=== PATIENT | male | born 1985 | race Caucasian/White ===

== ENCOUNTER 2016-08-14 23:49 | Observation (INO) ==
[2016-08-14] MEDS ORDERED: 0.9 % Sodium Chloride 1,000 ML IVC ONE (23:52)
--- NOTE | 2016-08-14 23:58 | Emergency Department Note ---
Disposition Clinical Impression: Altered mental status Disposition: Admitted As Inpatient Condition: Fair General Adult HPI - General Chief complaint: ED Overdose Time Seen by Provider: 08/14/16 23:52 - Related Data Allergies Allergy/AdvReac Type Severity Reaction Status Date / Time Unable to Assess Allergy Unverified 08/14/16 23:58 Course Vital Signs Temperature 98 F 08/14/16 23:52 Pulse Rate 67 08/14/16 23:52 Respiratory Rate 12 08/14/16 23:52 Blood Pressure 112/63 08/14/16 23:52 O2 Sat by Pulse Oximetry 98 08/14/16 23:52 Temperature 97.7 F 08/15/16 04:50 Pulse Rate 49 08/15/16 04:50 Respiratory Rate 16 08/15/16 04:57 Blood Pressure 126/98 08/15/16 04:57 O2 Sat by Pulse Oximetry 96 08/15/16 04:50 Oxygen Delivery Oxygen Delivery Room Air Medical Decision Making - Lab Data Result diagrams: 08/15/16 00:20 08/15/16 00:20 Lab Results 08/15/16 08/15/16 08/15/16 Range/Units 00:20 00:20 00:29 WBC 4.8 (4.3-11.1) K/mcL RBC 4.87 (4.19-5.50) M/mcL Hgb 12.8 L (12.9-16.9) g/dL Hct 39.8 (37.5-50.1) % MCV 81.7 L (83.0-100.0) fL MCH 26.3 L (28.0-33.3) pg MCHC 32.2 (31.6-35.5) g/dL RDW 14.6 H (11.5-14.5) % Plt Count 215 (140-400) K/mcL MPV 11.0 (9.4-12.4) fL Immature Gran % 0.2 (0-4) % Seg Neutrophils % 44.2 % Lymphocytes % 43.1 % Monocytes % 7.3 % Eosinophils % 4.6 % Basophils % 0.6 % Neutrophils # 2.1 (1.6-8.9) K/mcL Lymphocytes # 2.1 (0.6-4.6) K/mcL Monocytes # 0.4 (0.0-1.3) K/mcL Eosinophils # 0.2 (0.0-0.6) K/mcL Basophils # 0.0 (0.0-0.2) K/mcL Immature Plt Fraction 9.0 H (1.1-6.1) % ABG pH (7.32-7.45) pH Units ABG pCO2 (35-45) mmHg ABG pO2 (85-104) mmHg ABG HCO3 (21-27) mEQ/L ABG Total CO2 (20-26) mEq/L ABG O2 Saturation (95-98) % ABG Base Excess (-2.0 to 3.0) mEq/L Blood Gas Modality Inspired O2 % Sodium 140 (136-145) mEq/L Potassium 3.5 (3.5-4.5) mEq/L Chloride 105 (98-109) mEq/L Carbon Dioxide 26 (19-29) mEq/L BUN 11 (8-26) mg/dL Creatinine 0.97 (0.72-1.25) mg/dL Est GFR ( Amer) > 60 (> 60) Est GFR (Non-Af Amer) > 60 (> 60) BUN/Creatinine Ratio 11 (6-26) Glucose 97 (70-99) mg/dL Calculated Osmolality 289 (280-300) Calcium 9.3 (8.6-10.8) mg/dL Total Bilirubin 0.5 (0.2-1.2) mg/dL Direct Bilirubin 0.2 (0.0-0.5) mg/dL Indirect Bilirubin 0.3 (0.0-1.2) mg/dL AST 19 (5-34) Units/L ALT 15 (0-55) Units/L Alkaline Phosphatase 83 (38-126) Units/L Serum Total Protein 6.9 (6.0-8.3) g/dL Albumin 3.7 (3.5-5.0) g/dL Globulin 3.2 (2.4-3.5) g/dL Albumin/Globulin Ratio 1.2 (1.1-2.2) Urine Color Dark Yellow (Yellow) Urine Clarity Cloudy A (Clear) Urine pH 5.5 (5.0-8.0) pH Units Ur Specific [place] > 1.030 H (1.010-1.025) Urine Protein Trace (Neg-Trace) mg/dL Urine Glucose (UA) Normal (Normal) mg/dL Urine Ketones Trace H (Negative) mg/dL Urine Blood Negative (Negative) Urine Nitrite Negative (Negative) Urine Bilirubin Small H (Negative) Urine Urobilinogen Normal (Normal) mg/dL Ur Leukocyte Esterase Moderate H (Negative) Urine Microscopic RBC 3-5 H (0-3) per hpf Urine Microscopic WBC 50-100 H (0-3) per hpf Ur Squamous Epith Cells Few (None-Few) per lpf Urine Bacteria Moderate H (None-Few) per hpf Hyaline Casts None Seen (None-Few) per lpf Salicylates < 5.0 L (15-30) mg/dL Urine Opiates Screen (Mwawfl=914) ng/mL Acetaminophen < 1.0 L (10-30) mcg/mL Ur Barbiturates Screen (Uhnfuq=399) ng/mL Ur Phencyclidine Scrn (Cutoff=25) ng/mL Ur Amphetamines Screen (Ggjjqw=5238) ng/mL U Benzodiazepines Scrn (Xzgwtb=829) ng/mL Urine Cocaine Screen (Cutoff= 300) ng/mL U Marijuana (THC) Screen (Cutoff = 50) ng/mL Ethyl Alcohol < 10 (0-10) mg/dL 08/15/16 08/15/16 Range/Units 00:29 01:28 WBC (4.3-11.1) K/mcL RBC (4.19-5.50) M/mcL Hgb (12.9-16.9) g/dL Hct (37.5-50.1) % MCV (83.0-100.0) fL MCH (28.0-33.3) pg MCHC (31.6-35.5) g/dL RDW (11.5-14.5) % Plt Count (140-400) K/mcL MPV (9.4-12.4) fL Immature Gran % (0-4) % Seg Neutrophils % % Lymphocytes % % Monocytes % % Eosinophils % % Basophils % % Neutrophils # (1.6-8.9) K/mcL Lymphocytes # (0.6-4.6) K/mcL Monocytes # (0.0-1.3) K/mcL Eosinophils # (0.0-0.6) K/mcL Basophils # (0.0-0.2) K/mcL Immature Plt Fraction (1.1-6.1) % ABG pH 7.40 (7.32-7.45) pH Units ABG pCO2 52 H (35-45) mmHg ABG pO2 82 L (85-104) mmHg ABG HCO3 32.2 H (21-27) mEQ/L ABG Total CO2 33.8 H (20-26) mEq/L ABG O2 Saturation 96 (95-98) % ABG Base Excess 6.1 H (-2.0 to 3.0) mEq/L Blood Gas Modality RA Inspired O2 21 % Sodium (136-145) mEq/L Potassium (3.5-4.5) mEq/L Chloride (98-109) mEq/L Carbon Dioxide (19-29) mEq/L BUN (8-26) mg/dL Creatinine (0.72-1.25) mg/dL Est GFR ( Amer) (> 60) Est GFR (Non-Af Amer) (> 60) BUN/Creatinine Ratio (6-26) Glucose (70-99) mg/dL Calculated Osmolality (280-300) Calcium (8.6-10.8) mg/dL Total Bilirubin (0.2-1.2) mg/dL Direct Bilirubin (0.0-0.5) mg/dL Indirect Bilirubin (0.0-1.2) mg/dL AST (5-34) Units/L ALT (0-55) Units/L Alkaline Phosphatase (38-126) Units/L Serum Total Protein (6.0-8.3) g/dL Albumin (3.5-5.0) g/dL Globulin (2.4-3.5) g/dL Albumin/Globulin Ratio (1.1-2.2) Urine Color (Yellow) Urine Clarity (Clear) Urine pH (5.0-8.0) pH Units Ur Specific [place] (1.010-1.025) Urine Protein (Neg-Trace) mg/dL Urine Glucose (UA) (Normal) mg/dL Urine Ketones (Negative) mg/dL Urine Blood (Negative) Urine Nitrite (Negative) Urine Bilirubin (Negative) Urine Urobilinogen (Normal) mg/dL Ur Leukocyte Esterase (Negative) Urine Microscopic RBC (0-3) per hpf Urine Microscopic WBC (0-3) per hpf Ur Squamous Epith Cells (None-Few) per lpf Urine Bacteria (None-Few) per hpf Hyaline Casts (None-Few) per lpf Salicylates (15-30) mg/dL Urine Opiates Screen Negative (Sqykgf=205) ng/mL Acetaminophen (10-30) mcg/mL Ur Barbiturates Screen Negative (Vbvlzu=539) ng/mL Ur Phencyclidine Scrn Negative (Cutoff=25) ng/mL Ur Amphetamines Screen Positive H (Kobujc=5222) ng/mL U Benzodiazepines Scrn Positive H (Cvspfk=326) ng/mL Urine Cocaine Screen Negative (Cutoff= 300) ng/mL U Marijuana (THC) Screen Positive H (Cutoff = 50) ng/mL Ethyl Alcohol (0-10) mg/dL Critical Care Time Critical Care Time: Yes Total Critical Care Time: 30 Attestation: Patient presented after a suspected opiate overdose requiring multiple doses of Narcan Attestation Statement - Attestation Attestation: I examined this patient and my medical decision-making was reviewed with the [employer]/PA/Advanced Practice Nurse/Resident Physician. I agree with the documented findings, disposition and treatment plan as described except to the extent set forth below. Gtcc-uv-hzmg time provided Patient presents obtunded after a suspected opiate overdose. He was found at [place] in his car with drug paraphernalia present. Pupils pinpoint. Minimal response from several doses of IV Narcan. Nasal trumpet placed by the resident physician under my supervision. Patient protecting his airway. 01:35: A family member called in and indicated that the patient "does not use drugs and is postictal from a seizure." At this point the patient is still listed as a Perry Culver. We are awaiting the patient's family to arrive to obtain more information.
--- NOTE | 2016-08-14 23:58 | Emergency Department Note ---
Overdose - Lab Data Result diagrams: 08/15/16 00:20 08/15/16 00:20 Lab Results 08/15/16 08/15/16 08/15/16 Range/Units 00:20 00:20 00:29 WBC 4.8 (4.3-11.1) K/mcL RBC 4.87 (4.19-5.50) M/mcL Hgb 12.8 L (12.9-16.9) g/dL Hct 39.8 (37.5-50.1) % MCV 81.7 L (83.0-100.0) fL MCH 26.3 L (28.0-33.3) pg MCHC 32.2 (31.6-35.5) g/dL RDW 14.6 H (11.5-14.5) % Plt Count 215 (140-400) K/mcL MPV 11.0 (9.4-12.4) fL Immature Gran % 0.2 (0-4) % Seg Neutrophils % 44.2 % Lymphocytes % 43.1 % Monocytes % 7.3 % Eosinophils % 4.6 % Basophils % 0.6 % Neutrophils # 2.1 (1.6-8.9) K/mcL Lymphocytes # 2.1 (0.6-4.6) K/mcL Monocytes # 0.4 (0.0-1.3) K/mcL Eosinophils # 0.2 (0.0-0.6) K/mcL Basophils # 0.0 (0.0-0.2) K/mcL Immature Plt Fraction 9.0 H (1.1-6.1) % ABG pH (7.32-7.45) pH Units ABG pCO2 (35-45) mmHg ABG pO2 (85-104) mmHg ABG HCO3 (21-27) mEQ/L ABG Total CO2 (20-26) mEq/L ABG O2 Saturation (95-98) % ABG Base Excess (-2.0 to 3.0) mEq/L Blood Gas Modality Inspired O2 % Sodium 140 (136-145) mEq/L Potassium 3.5 (3.5-4.5) mEq/L Chloride 105 (98-109) mEq/L Carbon Dioxide 26 (19-29) mEq/L BUN 11 (8-26) mg/dL Creatinine 0.97 (0.72-1.25) mg/dL Est GFR ( Amer) > 60 (> 60) Est GFR (Non-Af Amer) > 60 (> 60) BUN/Creatinine Ratio 11 (6-26) Glucose 97 (70-99) mg/dL Calculated Osmolality 289 (280-300) Calcium 9.3 (8.6-10.8) mg/dL Total Bilirubin 0.5 (0.2-1.2) mg/dL Direct Bilirubin 0.2 (0.0-0.5) mg/dL Indirect Bilirubin 0.3 (0.0-1.2) mg/dL AST 19 (5-34) Units/L ALT 15 (0-55) Units/L Alkaline Phosphatase 83 (38-126) Units/L Serum Total Protein 6.9 (6.0-8.3) g/dL Albumin 3.7 (3.5-5.0) g/dL Globulin 3.2 (2.4-3.5) g/dL Albumin/Globulin Ratio 1.2 (1.1-2.2) Urine Color Dark Yellow (Yellow) Urine Clarity Cloudy A (Clear) Urine pH 5.5 (5.0-8.0) pH Units Ur Specific [place] > 1.030 H (1.010-1.025) Urine Protein Trace (Neg-Trace) mg/dL Urine Glucose (UA) Normal (Normal) mg/dL Urine Ketones Trace H (Negative) mg/dL Urine Blood Negative (Negative) Urine Nitrite Negative (Negative) Urine Bilirubin Small H (Negative) Urine Urobilinogen Normal (Normal) mg/dL Ur Leukocyte Esterase Moderate H (Negative) Urine Microscopic RBC 3-5 H (0-3) per hpf Urine Microscopic WBC 50-100 H (0-3) per hpf Ur Squamous Epith Cells Few (None-Few) per lpf Urine Bacteria Moderate H (None-Few) per hpf Hyaline Casts None Seen (None-Few) per lpf Salicylates < 5.0 L (15-30) mg/dL Urine Opiates Screen (Ywbsni=218) ng/mL Acetaminophen < 1.0 L (10-30) mcg/mL Ur Barbiturates Screen (Prufdf=570) ng/mL Ur Phencyclidine Scrn (Cutoff=25) ng/mL Ur Amphetamines Screen (Nxeslz=7568) ng/mL U Benzodiazepines Scrn (Rhspcu=178) ng/mL Urine Cocaine Screen (Cutoff= 300) ng/mL U Marijuana (THC) Screen (Cutoff = 50) ng/mL Ethyl Alcohol < 10 (0-10) mg/dL 08/15/16 08/15/16 Range/Units 00:29 01:28 WBC (4.3-11.1) K/mcL RBC (4.19-5.50) M/mcL Hgb (12.9-16.9) g/dL Hct (37.5-50.1) % MCV (83.0-100.0) fL MCH (28.0-33.3) pg MCHC (31.6-35.5) g/dL RDW (11.5-14.5) % Plt Count (140-400) K/mcL MPV (9.4-12.4) fL Immature Gran % (0-4) % Seg Neutrophils % % Lymphocytes % % Monocytes % % Eosinophils % % Basophils % % Neutrophils # (1.6-8.9) K/mcL Lymphocytes # (0.6-4.6) K/mcL Monocytes # (0.0-1.3) K/mcL Eosinophils # (0.0-0.6) K/mcL Basophils # (0.0-0.2) K/mcL Immature Plt Fraction (1.1-6.1) % ABG pH 7.40 (7.32-7.45) pH Units ABG pCO2 52 H (35-45) mmHg ABG pO2 82 L (85-104) mmHg ABG HCO3 32.2 H (21-27) mEQ/L ABG Total CO2 33.8 H (20-26) mEq/L ABG O2 Saturation 96 (95-98) % ABG Base Excess 6.1 H (-2.0 to 3.0) mEq/L Blood Gas Modality RA Inspired O2 21 % Sodium (136-145) mEq/L Potassium (3.5-4.5) mEq/L Chloride (98-109) mEq/L Carbon Dioxide (19-29) mEq/L BUN (8-26) mg/dL Creatinine (0.72-1.25) mg/dL Est GFR ( Amer) (> 60) Est GFR (Non-Af Amer) (> 60) BUN/Creatinine Ratio (6-26) Glucose (70-99) mg/dL Calculated Osmolality (280-300) Calcium (8.6-10.8) mg/dL Total Bilirubin (0.2-1.2) mg/dL Direct Bilirubin (0.0-0.5) mg/dL Indirect Bilirubin (0.0-1.2) mg/dL AST (5-34) Units/L ALT (0-55) Units/L Alkaline Phosphatase (38-126) Units/L Serum Total Protein (6.0-8.3) g/dL Albumin (3.5-5.0) g/dL Globulin (2.4-3.5) g/dL Albumin/Globulin Ratio (1.1-2.2) Urine Color (Yellow) Urine Clarity (Clear) Urine pH (5.0-8.0) pH Units Ur Specific [place] (1.010-1.025) Urine Protein (Neg-Trace) mg/dL Urine Glucose (UA) (Normal) mg/dL Urine Ketones (Negative) mg/dL Urine Blood (Negative) Urine Nitrite (Negative) Urine Bilirubin (Negative) Urine Urobilinogen (Normal) mg/dL Ur Leukocyte Esterase (Negative) Urine Microscopic RBC (0-3) per hpf Urine Microscopic WBC (0-3) per hpf Ur Squamous Epith Cells (None-Few) per lpf Urine Bacteria (None-Few) per hpf Hyaline Casts (None-Few) per lpf Salicylates (15-30) mg/dL Urine Opiates Screen Negative (Clqyyi=053) ng/mL Acetaminophen (10-30) mcg/mL Ur Barbiturates Screen Negative (Bxukwf=987) ng/mL Ur Phencyclidine Scrn Negative (Cutoff=25) ng/mL Ur Amphetamines Screen Positive H (Quqgxr=9180) ng/mL U Benzodiazepines Scrn Positive H (Doikoc=284) ng/mL Urine Cocaine Screen Negative (Cutoff= 300) ng/mL U Marijuana (THC) Screen Positive H (Cutoff = 50) ng/mL Ethyl Alcohol (0-10) mg/dL - EKG Data EKG results narrative: EKG shows a sinus rhythm with a rate of 62 bpm. Intervals including the QT interval within normal limits. No ST changes. No acute ischemic changes. QRS is 113 ms. Overdose HPI - General Chief Complaint: ED Overdose Time Seen by Provider: 08/14/16 23:52 Nursing Notes Reviewed: Yes Vital Signs Reviewed: Yes - History of Present Illness HPI Narrative: Unidentified male presents to the emergency department after being found unresponsive at [facility]. He was found in his car, unresponsive and EMS was called. EMS state he was in his car and was not responding to verbal stimuli but some to pain. EMS denies any signs of injury. They gave him a total 4 mg of IV Narcan with some mild improvement. In the emergency department he is breathing on his own, withdraws to pain in 4 extremities but making no sounds. He is not able to provide any information. - Related Data Allergies Allergy/AdvReac Type Severity Reaction Status Date / Time Unable to Assess Allergy Unverified 08/14/16 23:58 Limitations: ROS unobtainable due to patients medical condition Physical Exam General: Mid 20s appearing male, sleeping in bed, no spontaneous verbal. Breathing on his own without any respiratory distress Cardiovascular: Regular rate and rhythm. S1, S2. No murmurs, rubs or gallops. He is not tachycardic Respiratory: Breath sounds clear bilaterally. No wheezing, rales or rhonchi. No resp distress Abdomen: Abdomen is soft without any guarding, rebound or rigidity, there is no bruising or signs of trauma. No pain elicited on exam it is very soft without distention Eyes: Pupils are 2-3 mm, small but symmetrically reactive bilaterally. No deviation or strabismus. HENT: No signs of head trauma, no bleeding, no signs of facial injury Neuro: Withdraws to pain in all extremities. No posturing. Opens eyes to pain briefly. Breathing on his own with no difficulties. Gag reflex intact. Protecting airway. Musculoskeletal: No joint tenderness or swelling. No signs of bruising or trauma Skin: Signs of IV drug use in the antecubital fossa. No other bruising or signs of injury Course Course Narrative: Unidentified male late 20s or early 30s found unresponsive in a car. Minimal response to Narcan however pupils are pinpoint. No signs of trauma or injury. No family present or identification. Initial vital signs are stable. GCS around 7-[address] scan of the head shows no acute injury. Chest x-ray clear. Labs including CBC, BMP, [place] panel essentially unremarkable. EKG unremarkable. Urine drug screen positive for marijuana, benzodiazepines and amphetamines. His urinalysis did come back positive for leukocyte esterase with 50-100 white blood cells. It is unlikely a young man like him has a urinary tract infection but once more awake this can be discussed with him. I did send for a gonorrhea/Chlamydia test as this can cause pyuria and is probably more likely. He is not febrile, tachycardic with no leukocytosis and I do not suspect infection. Family did call and state he has a history of seizures and takes medications. We do not know these medications. They are apparently coming to the emergency department but we have not seen them yet to get any further history and no phone number was left. No seizure-like activity. After 3 hours in the emergency department his mental status is improving and now speaking and opening eyes more easily. We discussed with the on-call hospitalist, Dr. Zavala who accepts for admission. Patient will be monitored in the ICU until more stable Vital Signs Temperature 98 F 08/14/16 23:52 Pulse Rate 67 08/14/16 23:52 Respiratory Rate 12 08/14/16 23:52 Blood Pressure 112/63 08/14/16 23:52 O2 Sat by Pulse Oximetry 98 08/14/16 23:52 Temperature 98 F 08/14/16 23:52 Pulse Rate 51 08/15/16 00:51 Respiratory Rate 16 08/15/16 00:51 Blood Pressure 112/68 08/15/16 00:51 O2 Sat by Pulse Oximetry 98 08/15/16 00:51 Oxygen Delivery Oxygen Delivery Room Air Disposition Clinical Impression: Altered mental status Qualifiers: Altered mental status type: unspecified Qualified Code(s): R41.82 - Altered mental status, unspecified Disposition: Admitted As Inpatient Condition: Fair
[2016-08-15 00:27] LABS: Basophils % 0.6 %; Eosinophils # 0.2 K/mcL (0.0-0.6); Eosinophils % 4.6 %; Hematocrit 39.8 % (37.5-50.1); Hemoglobin 12.8 g/dL (12.9-16.9); Immature Granulocytes % 0.2 % (0-4); Lymphocytes # 2.1 K/mcL (0.6-4.6); Lymphocytes % 43.1 %; Mean Corpuscular HGB Conc 32.2 g/dL (31.6-35.5); Mean Corpuscular Hemoglobin 26.3 pg (28.0-33.3); Mean Corpuscular Volume 81.7 fL (83.0-100.0); Monocytes # 0.4 K/mcL (0.0-1.3); Monocytes % 7.3 %; Neutrophils # 2.1 K/mcL (1.6-8.9); Platelet Count 215 K/mcL (140-400); Red Blood Count 4.87 M/mcL (4.19-5.50); Red Cell Distribution Width 14.6 % (11.5-14.5); Segmented Neutrophils % 44.2 %
[2016-08-15 00:36] LABS: Bilirubin,Urine Small (Negative); Blood,Urine Negative (Negative); Clarity,Urine Cloudy (Clear); Color,Urine Dark Yellow (Yellow); Glucose,Urine (UA) Normal (Normal); Ketones,Urine Trace mg/dL (Negative); Leukocyte Esterase,Urine Moderate (Negative); Nitrite,Urine Negative (Negative); PH,Urine 5.5 pH Units (5.0-8.0); Protein,Urine Trace mg/dL (Neg-Trace); Specific Gravity,Urine > 1.030 (1.010-1.025); Urobilinogen,Urine Normal (Normal)
[2016-08-15 00:38] LABS: Hyaline Casts,Urine None Seen per lpf (None-Few); WBC,Urine 50-100 per hpf (0-3)
[2016-08-15 00:41] LABS: Amphetamine Screen,Urine Positive ng/mL (Cutoff=1000); Barbiturate Screen,Urine Negative ng/mL (Cutoff=200); Benzodiazepines Screen,Urine Positive ng/mL (Cutoff=200); Cannabinoid Screen,Urine Positive ng/mL (Cutoff = 50); Cocaine Screen,Urine Negative ng/mL (Cutoff= 300); Opiate Screen,Urine Negative ng/mL (Cutoff=300); Phencyclidine Screen,Urine Negative ng/mL (Cutoff=25)
[2016-08-15 00:42] LABS: Alanine Aminotransferase 15 Units/L (0-55); Albumin 3.7 g/dL (3.5-5.0); Albumin/Globulin Ratio 1.2 (1.1-2.2); Alkaline Phosphatase 83 Units/L (38-126); Aspartate Amino Transferase 19 Units/L (5-34); BUN/Creatinine Ratio 11 (6-26); Bilirubin,Direct 0.2 mg/dL (0.0-0.5); Bilirubin,Indirect 0.3 mg/dL (0.0-1.2); Bilirubin,Total 0.5 mg/dL (0.2-1.2); Blood Urea Nitrogen 11 mg/dL (8-26); Calcium 9.3 mg/dL (8.6-10.8); Carbon Dioxide 26 mEq/L (19-29); Chloride 105 mEq/L (98-109); Globulin 3.2 g/dL (2.4-3.5); Glucose 97 mg/dL (70-99); Osmolality,Calculated 289 (280-300); Potassium 3.5 mEq/L (3.5-4.5); Sodium 140 mEq/L (136-145); Total Protein 6.9 g/dL (6.0-8.3); eGFR For African Americans > 60 (> 60); eGFR For Non-African Americans > 60 (> 60)
[2016-08-15 00:43] LABS: Acetaminophen < 1.0 mcg/mL (10-30); Ethanol < 10 mg/dL (0-10); Salicylate < 5.0 mg/dL (15-30)
[2016-08-15 00:48] LABS: Bacteria,Urine Moderate per hpf (None-Few); Squamous Epithelial Cell,Urine Few per lpf (None-Few)
[2016-08-15 01:38] LABS: ABG Base Excess 6.1 mEq/L (-2.0 to 3.0); ABG HCO3 32.2 mEQ/L (21-27); ABG Oxygen Saturation 96 % (95-98); ABG PCO2 52 mmHg (35-45); ABG PO2 82 mmHg (85-104); ABG TCO2 33.8 mEq/L (20-26); Blood Gas FiO2 21 %
[2016-08-15] MEDS ORDERED: 0.9 % Sodium Chloride 1,000 ML IVC ONE (03:20)
--- NOTE | 2016-08-15 03:35 | Internal Med History&Physical ---
Date of Encounter: 08/16/16 Time of Encounter: 03:31 Assessment and Plan (1) Altered mental status Status: Acute suspected overdose. Urine is positive for benzodiazepines amphetamines.and marijuana. opiates is negative in urine. Patient had received a total of 8 mg of Narcan without improvement. Patient is unable to provide any history. Patient Jose coma scale is 9/15 for eye-opening to painful stimuli, sounds localization. CT scan of the head is unremarkable. Family mentioned concerns about seizures and mentioned that he is on seizure medicine. Awaiting verification of seizure medicines by family to be resumed. with regards to his [place] has a cough and a gag reflex. Arterial blood gas was performed showing a pH of 7.4, PCO2 of 52and saturation 96% on room air. Qualifiers: Altered mental status type: unspecified Qualified Code(s): R41.82 - Altered mental status, unspecified Internal Medicine - H&P: HPI Chief complaint: AMS History of present illness: Mr. Culver is a 30 year old male WAS SENT TO THE EMERGENCY ROOM TODAY AFTER FOUND IN A PARKING LOT UNRESPONSIVE. hE HAD RECEIVED MULTIPLE DOSES OF nARCAN WITHOUT IMPROVEMENT. hE IS UNABLE TO PROVIDE ANY HISTORY. uRINE IS POSITIVE FOR BENZODIAZEPINES/AMPHETAMINES AND MARIJUANA. fAMILY MENTIONED THAT PATIENT HAS A HISTORY OF SEIZURES AND THEY THINK THAT THIS IS MORE OF A SEIZURE. patient is still unresponsive during our interview in the emergency room. He localizes to painful stimuli. Eye-opening to painful stimuli. Sounds. He is having a cough and a gag reflex Past Med Surg Social Fam HX - Past Medical History Medical history: no medical history Psychiatric history: no psych history - Social History Smoking Status: Unknown if ever smoked Drug use: unknown Internal Medicine - H&P: Meds Clobetasol Propionate 0.05% [Temovate] 1 appl TP BID PRN 08/15/16 [History] Dextran 70/Hypromellose [Artificial Tears Eye Drops] 1 drop OP Q4H PRN 08/15/16 [History] Divalproex (24 HR) [Depakote ER (24 HR)] 500 mg PO HS 08/15/16 [History] Fexofenadine HCl [Allergy Relief] 180 mg PO DAILY 08/15/16 [History] Gabapentin [Neurontin] 800 mg PO TID 08/15/16 [History] Naproxen [Naprosyn] 500 mg PO BID PRN 08/15/16 [History] clonazePAM [Klonopin] 1 mg PO BID PRN 08/15/16 [History] Allergies Unable to Assess Allergy (Unverified 08/14/16 23:58) patient unresponsive All Systems PM: A 10-system review of systems was performed and is negative for pertinent findings except as documented above in the HPI. Review of systems: Review system unobtainable given patient mental status. - Constitutional Vitals: Temp Pulse Resp BP Pulse Ox 98 F 55 14 116/91 94 08/14/16 23:52 08/15/16 02:51 08/15/16 02:51 08/15/16 02:51 08/15/16 02:51 Exam: Gen.: patient is stuporous. GCS 8/15 cardiac: normal S1 S2 no additional sounds or murmurs chest: no active wheezing or bronchial breathing abdomen soft nontender nondistended normal bowel sounds lower extremity no swelling. Neuro: couldnt be perofmred given his mental status Internal Med - H&P Results - Labs CBC & Chem 7: 08/15/16 03:55 08/15/16 03:55 - Impressions ITS Impressions Head CT 08/15/16 23:54 IMPRESSION: No acute intracranial abnormality. D/ / Carito Abernathy MD / Carito Abernathy MD Interpreting Provider: Carito Abernathy MD
[2016-08-15] MEDS: D5% in 0.9% NACL 1,000 ML IVC SCH ×2 (03:48→15:38)
[2016-08-15 06:11] LABS: Basophils % 0.8 %; Eosinophils # 0.2 K/mcL (0.0-0.6); Hematocrit 39.4 % (37.5-50.1); Hemoglobin 12.6 g/dL (12.9-16.9); Immature Granulocytes % 0.3 % (0-4); Lymphocytes # 1.8 K/mcL (0.6-4.6); Lymphocytes % 45.9 %; Mean Corpuscular Hemoglobin 26.8 pg (28.0-33.3); Mean Corpuscular Volume 83.7 fL (83.0-100.0); Mean Platelet Volume 11.4 fL (9.4-12.4); Monocytes # 0.4 K/mcL (0.0-1.3); Neutrophils # 1.5 K/mcL (1.6-8.9); Platelet Count 177 K/mcL (140-400); Red Blood Count 4.71 M/mcL (4.19-5.50); Red Cell Distribution Width 14.8 % (11.5-14.5)
[2016-08-15 06:21] LABS: Alanine Aminotransferase 23 Units/L (0-55); Albumin 3.3 g/dL (3.5-5.0); Albumin/Globulin Ratio 1.2 (1.1-2.2); Alkaline Phosphatase 77 Units/L (38-126); Aspartate Amino Transferase 49 Units/L (5-34); BUN/Creatinine Ratio 10 (6-26); Bilirubin,Total 0.6 mg/dL (0.2-1.2); Blood Urea Nitrogen 11 mg/dL (8-26); Calcium 8.7 mg/dL (8.6-10.8); Carbon Dioxide 29 mEq/L (19-29); Chloride 107 mEq/L (98-109); Globulin 2.8 g/dL (2.4-3.5); Glucose 113 mg/dL (70-99); Magnesium 1.8 mg/dL (1.6-2.6); Osmolality,Calculated 294 (280-300); Potassium 3.5 mEq/L (3.5-4.5); Sodium 142 mEq/L (136-145); Total Protein 6.1 g/dL (6.0-8.3); eGFR For African Americans > 60 (> 60); eGFR For Non-African Americans > 60 (> 60)
[2016-08-15] MEDS ORDERED: Pantoprazole 40 MG VIAL IVP SCH (09:00)
--- NOTE | 2016-08-15 09:54 | Pulmonology Consult Note ---
<Ayala Penn - Last Filed: 08/15/16 16:07> Date of Encounter: 08/15/16 Time of Encounter: 09:49 Assessment and Plan (1) Overdose Current Visit: Yes Status: Acute Since admission the patient has had no seizure-like activity, EEG negative for seizure activity. The patient has been stable. He is sleeping but wakes easily to painful stimuli. He denies any pain, states that he is just "tired". He denies using any drugs and does not remember the events of last evening. He states that he does not use any drugs. The patient was noted to have a scabbed ulceration and firm nodule under the skin of his penis on the right lateral side that is mobile. When questioned about possible IV injection into this site he denies this. With leukocytosis in the patient's urine, the patient will be tested for chlamydia, gonorrhea, syphilis, hepatitis, HIV. Patient was added on ceftriaxone. Track cho were also noted on the patient's arms excoriations and scabbing on all 4 extremities. Stable for transfer to a telemetry bed from the ICU. 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 He is able to move all extremities no neurological deficits. Pupils equal round and reactive to light, patient does not recall the events of last evening. No seizure-like activity since arrival. EEG was negative for seizure activity. Pharmacy was able to obtain patient's home medications, he does take Depakote 500 mg by mouth at bedtime. We will start this this evening. Pulmonary: Patient is stable, chest x-ray negative, lung sounds clear to auscultation bilaterally Cardiovascular: Normal sinus rhythm, patient occasionally has episodes of bradycardia. We will continue to lunchroom monitor GI: Nutrition: NPO while drowsy, advance diet as tolerated and patient is more awake GI Prophylaxis protonix Renal: Creatinine within normal limits, did rise slightly to 1.08. Patient has received IV fluids. Continue to monitor. ID: The patient was found to have leukocytosis in his urine, he also has multiple excoriations similar to track cho and a couple abrasions on bilateral upper and lower extremities. The patient also has an ulcerated chancer-type lesion with a firm mobile nodule below the skin surface on the right lateral side of his penis. The patient was started on ceftriaxone in the ER, will be tested for STI's: Chlamydia, gonorrhea, hepatitis panel, syphilis, HIV. Heme/Onc: H/H stable Endocrine: Stable Lines: all lines checked and no evidence of infections Skin: skin care to prevent pressure ulcers per nursing routine care. CODE STATUS: FULL CODE Qualifiers: Encounter type: initial encounter Injury intent: accidental or unintentional Qualified Code(s): T50.901A - Poisoning by unspecified drugs, medicaments and biological substances, accidental (unintentional), initial encounter (2) Altered mental status Current Visit: Yes Status: Acute Qualifiers: Altered mental status type: unspecified Qualified Code(s): R41.82 - Altered mental status, unspecified History of Present Illness Consult date: 08/15/16 Requesting physician: Miquel Zavala Reason for consult: other (AMS) Chief complaint: OD History of present illness: Mr. Bui is a 31-year-old male presented to the emergency department overnight after being found unresponsive at [facility]. He was found in his car and EMS was called. EMS stated that he was in his car, not responding to verbal stimuli but did respond to some painful stimuli. EMS denies any signs of injury to the patient upon their arrival. He was given a total of 4 mg of IV Narcan with some mild improvement. Upon arrival to the ER the patient had no identification and no family members were present. It was noted that his pupils were pinpoint, GCS 7-[address] negative, CXR negative, CBC, CMP essentially unremarkable. UDS + THC, benzos, amphetamines. Once patient was identified and family was contacted they stated that he has a history of seizure and takes medications however they do not know which medications. Since admission the patient has had no seizure-like activity, EEG negative for seizure activity. The patient has been stable. He is sleeping but wakes easily to painful stimuli. He denies any pain, states that he is just "tired". He denies using any drugs and does not remember the events of last evening. He states that he does not use any drugs. The patient was noted to have a scabbed ulceration and firm nodule under the skin of his penis that is mobile. When questioned about possible IV injection into this site, he denies this. With leukocytosis in the patient's urine, the patient will be tested for chlamydia, gonorrhea, syphilis, hepatitis, HIV. Track cho were also noted on the patient's arms excoriations and scabbing on all 4 extremities. Past Med Surg Social Fam HX - Past Medical History Medical history: no medical history Psychiatric history: no psych history - Social History Smoking Status: Unknown if ever smoked Drug use: unknown Medications and Allergies Clobetasol Propionate 0.05% [Temovate] 1 appl TP BID PRN 08/15/16 [History] Dextran 70/Hypromellose [Artificial Tears Eye Drops] 1 drop OP Q4H PRN 08/15/16 [History] Divalproex (24 HR) [Depakote ER (24 HR)] 500 mg PO HS 08/15/16 [History] Fexofenadine HCl [Allergy Relief] 180 mg PO DAILY 08/15/16 [History] Gabapentin [Neurontin] 800 mg PO TID 08/15/16 [History] Naproxen [Naprosyn] 500 mg PO BID PRN 08/15/16 [History] clonazePAM [Klonopin] 1 mg PO BID PRN 08/15/16 [History] Allergies Unable to Assess Allergy (Unverified 08/14/16 23:58) patient unresponsive ROS unobtainable: due to mental status All Systems: A 10-system review of systems was performed and is negative for pertinent findings except as documented above in the HPI. Physical Examination Vital Signs: Vital Signs, Last 4 Hours Pulse Resp BP Pulse Ox 08/15/16 09:10 56 08/15/16 09:00 75 17 132/77 97 08/15/16 08:00 52 16 128/90 99 08/15/16 07:00 58 10 130/91 97 08/15/16 06:01 50 10 135/92 100 General appearance: no acute distress, lethargic, asleep Eyes: nonicteric ENT: oropharynx moist Neck: supple, no lymphadenopathy, no JVD Effort: normal Auscultation: bilateral: clear Cardiovascular: other (Bradycardia, sinus rhythm) Gastrointestinal: normoactive bowel sounds, soft, non-tender, non-distended Integumentary: other (multiple excoriations similar to track cho and a couple abrasions on bilateral upper and lower extremities. The patient also has an ulcerated chancer-type lesion with a firm mobile nodule below the skin surface on the right lateral side of his penis. ) Extremities: no cyanosis, no edema, no clubbing, pulses normal non-focal exam, pupils equal and round, motor strength normal and symmetric mood appropriate, affect normal Results - Laboratory Findings CBC and BMP: 08/15/16 03:55 08/15/16 03:55 ABG ABG pH 7.40 pH Units (7.32-7.45) 08/15/16 01:28 ABG pCO2 52 mmHg (35-45) H 08/15/16 01:28 ABG pO2 82 mmHg (85-104) L 08/15/16 01:28 ABG O2 Saturation 96 % (95-98) 08/15/16 01:28 Abnormal lab findings: Abnormal lab results WBC 4.0 K/mcL (4.3-11.1) L 08/15/16 03:55 Hgb 12.6 g/dL (12.9-16.9) L 08/15/16 03:55 MCH 26.8 pg (28.0-33.3) L 08/15/16 03:55 RDW 14.8 % (11.5-14.5) H 08/15/16 03:55 Neutrophils # 1.5 K/mcL (1.6-8.9) L 08/15/16 03:55 Immature Plt Fraction 9.0 % (1.1-6.1) H 08/15/16 00:20 ABG pCO2 52 mmHg (35-45) H 08/15/16 01:28 ABG pO2 82 mmHg (85-104) L 08/15/16 01:28 ABG HCO3 32.2 mEQ/L (21-27) H 08/15/16 01:28 ABG Total CO2 33.8 mEq/L (20-26) H 08/15/16 01:28 ABG Base Excess 6.1 mEq/L (-2.0 to 3.0) H 08/15/16 01:28 Glucose 113 mg/dL (70-99) H 08/15/16 03:55 POC Glucose 100 (58-89) H 08/15/16 05:37 AST 49 Units/L (5-34) H 08/15/16 03:55 Albumin 3.3 g/dL (3.5-5.0) L 08/15/16 03:55 Urine Clarity Cloudy (Clear) A 08/15/16 00:29 Ur Specific [place] > 1.030 (1.010-1.025) H 08/15/16 00:29 Urine Ketones Trace mg/dL (Negative) H 08/15/16 00:29 Urine Bilirubin Small (Negative) H 08/15/16 00:29 Ur Leukocyte Esterase Moderate (Negative) H 08/15/16 00:29 Urine Microscopic RBC 3-5 per hpf (0-3) H 08/15/16 00:29 Urine Microscopic WBC 50-100 per hpf (0-3) H 08/15/16 00:29 Urine Bacteria Moderate per hpf (None-Few) H 08/15/16 00:29 Salicylates < 5.0 mg/dL (15-30) L 08/15/16 00:20 Acetaminophen < 1.0 mcg/mL (10-30) L 08/15/16 00:20 Ur Amphetamines Screen Positive ng/mL (Ywfkns=0556) H 08/15/16 00:29 U Benzodiazepines Scrn Positive ng/mL (Tzufch=949) H 08/15/16 00:29 U Marijuana (THC) Screen Positive ng/mL (Cutoff = 50) H 08/15/16 00:29 - Clinical Findings Intake & Output: Intake & Output 08/14/16 08/15/16 08/15/16 23:59 07:59 15:59 Intake Total 100 / 1100 Balance 100 / 1100 Weight 84 kg Consult Discharge Plan - Plan Referrals: Claudio Tatum MD [Primary Care Provider] - <Saulo Beckford - Last Filed: 08/15/16 16:14> Date of Encounter: 08/15/16 All Systems: A 10-system review of systems was performed and is negative for pertinent findings except as documented above in the HPI. Physical Examination Vital Signs: Vital Signs, Last 4 Hours Pulse Resp BP Pulse Ox 08/15/16 12:00 49 17 128/91 98 08/15/16 11:00 58 18 124/86 97 08/15/16 10:00 50 16 124/91 98 08/15/16 09:10 56 08/15/16 09:00 75 17 132/77 97 Results - Laboratory Findings CBC and BMP: 08/15/16 03:55 08/15/16 03:55 ABG ABG pH 7.40 pH Units (7.32-7.45) 08/15/16 01:28 ABG pCO2 52 mmHg (35-45) H 08/15/16 01:28 ABG pO2 82 mmHg (85-104) L 08/15/16 01:28 ABG O2 Saturation 96 % (95-98) 08/15/16 01:28 Abnormal lab findings: Abnormal lab results WBC 4.0 K/mcL (4.3-11.1) L 08/15/16 03:55 Hgb 12.6 g/dL (12.9-16.9) L 08/15/16 03:55 MCH 26.8 pg (28.0-33.3) L 08/15/16 03:55 RDW 14.8 % (11.5-14.5) H 08/15/16 03:55 Neutrophils # 1.5 K/mcL (1.6-8.9) L 08/15/16 03:55 Immature Plt Fraction 9.0 % (1.1-6.1) H 08/15/16 00:20 ABG pCO2 52 mmHg (35-45) H 08/15/16 01:28 ABG pO2 82 mmHg (85-104) L 08/15/16 01:28 ABG HCO3 32.2 mEQ/L (21-27) H 08/15/16 01:28 ABG Total CO2 33.8 mEq/L (20-26) H 08/15/16 01:28 ABG Base Excess 6.1 mEq/L (-2.0 to 3.0) H 08/15/16 01:28 Glucose 113 mg/dL (70-99) H 08/15/16 03:55 POC Glucose 100 (58-89) H 08/15/16 05:37 AST 49 Units/L (5-34) H 08/15/16 03:55 Albumin 3.3 g/dL (3.5-5.0) L 08/15/16 03:55 Urine Clarity Cloudy (Clear) A 08/15/16 00:29 Ur Specific [place] > 1.030 (1.010-1.025) H 08/15/16 00:29 Urine Ketones Trace mg/dL (Negative) H 08/15/16 00:29 Urine Bilirubin Small (Negative) H 08/15/16 00:29 Ur Leukocyte Esterase Moderate (Negative) H 08/15/16 00:29 Urine Microscopic RBC 3-5 per hpf (0-3) H 08/15/16 00:29 Urine Microscopic WBC 50-100 per hpf (0-3) H 08/15/16 00:29 Urine Bacteria Moderate per hpf (None-Few) H 08/15/16 00:29 Salicylates < 5.0 mg/dL (15-30) L 08/15/16 00:20 Acetaminophen < 1.0 mcg/mL (10-30) L 08/15/16 00:20 Ur Amphetamines Screen Positive ng/mL (Yprgjt=2553) H 08/15/16 00:29 U Benzodiazepines Scrn Positive ng/mL (Mrftpq=345) H 08/15/16 00:29 U Marijuana (THC) Screen Positive ng/mL (Cutoff = 50) H 08/15/16 00:29 - Clinical Findings Intake & Output: Intake & Output 08/14/16 08/15/16 08/15/16 23:59 07:59 15:59 Intake Total 100 / 1100 1000 / 1000 Balance 100 / 1100 1000 / 1000 Weight 84 kg - Attending Attestation I examined this patient and my medical decision-making was reviewed with the SENIOR TELECOMMUNICATIONS TECHNICIAN/PA/Advanced Practice Nurse/Resident Physician. I agree with the documented findings, disposition and treatment plan as described except to the extent set forth below. Patient seen and examined. Labs, radiology, chart personally reviewed. 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
--- NOTE | 2016-08-15 13:43 | EEG/EMG/Oth Biometrics Report ---
EEG Procedure Report Date of procedure: 08/15/16 EEG Procedure: Routine EEG Procedure Note: History: This is a 31 year old man who is undergoing an EEG to evaluate possible seizure disorder. Medication: no anticonvulsants listed. Report: This EEG was acquired with standard international 10-20 electrode placement system with EKG recording. The Background activity during this EEG was characterized by symmetric, persistent stage II light sleep, characterized by the presence of Vertex waves, K-complexes, sleep spindles. During brief wakefulness, background low amplitude fast activity was noted. EEG records appear reactive. There are no electricographic seizures identified during this tracing. There are no epileptiform discharges and focal slowing noted during this recording. Photic stimulation produced no abnormalities. Hyperventilation not performed during the study EKG tracing showed no significant cardiac dysarrhythmia. Impression: This is a normal mostly asleep EEG. Clinical Correlation: Normal EEGs, however, do not exclude epilepsy. Clinical correlation required.
--- NOTE | 2016-08-15 14:55 | Electrocardiograph Report ---
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
[2016-08-16] MEDS: Nicotine 21 MG PATCH.TD24 TD SCH ×2 (01:18→07:42)
[2016-08-16 07:03] VITALS: BP 109/69
--- NOTE | 2016-08-16 08:49 | Discharge Summary ---
Date of Encounter: 08/16/16 Time of Encounter: 08:46 - Discharge Diagnosis (1) Acute metabolic encephalopathy Priority: Primary Status: Acute (2) Overdose Priority: Primary Status: Acute Qualifiers: Encounter type: initial encounter Injury intent: accidental or unintentional Qualified Code(s): T50.901A - Poisoning by unspecified drugs, medicaments and biological substances, accidental (unintentional), initial encounter (3) Polypharmacy Priority: Primary Status: Acute - Discharge Medications Home Medications: Clobetasol Propionate 0.05% [Temovate] 1 appl TP BID PRN 08/15/16 [History] Dextran 70/Hypromellose [Artificial Tears Eye Drops] 1 drop OP Q4H PRN 08/15/16 [History] Divalproex (24 HR) [Depakote ER (24 HR)] 500 mg PO HS 08/15/16 [History] Fexofenadine HCl [Allergy Relief] 180 mg PO DAILY 08/15/16 [History] Gabapentin [Neurontin] 800 mg PO TID 08/15/16 [History] Naproxen [Naprosyn] 500 mg PO BID PRN 08/15/16 [History] clonazePAM [Klonopin] 1 mg PO BID PRN 08/15/16 [History] Allergies/Adverse Reactions: Allergies Unable to Assess Allergy (Unverified 08/14/16 23:58) patient unresponsive Date of admission: 08/15/16 02:12 Primary care physician: Claudio Tatum MD Consults: 08/15/16 03:21 Consult to Physical Therapy [CONS] Routine Comment: Evaluate, develop and implement POC Reason for Consult: weakness 08/15/16 06:29 Consult to Pulmonology [CONS] Routine Consulting Provider: [facility] [place] Reason for Consult: toxic metabolic encephalopathy. GCS 11/15 Call Completed: No - Patient Status Disposition: Home, Self-Care Condition: Good Functional capacity at discharge: independent ambulation Overall status at discharge: patient is progressing back to baseline - Discharge Instructions Instructions: Benzodiazepine Abuse (DC), Cannabis Abuse (DC), Methamphetamine Abuse (DC) Follow Up With: Claudio Tatum MD [Primary Care Provider] - 08/23/16 10:15 am Additional Instructions: follow up with your primary care doctor within 1 week for test results. - Diet and Activity Activity: resume usual activities as tolerated Diet: regular diet Interval History: no complaints. no chest pain. no shortness of breath. Hospital course: Mr. Bui is a 31 year old male with past medical history of mood disorder who was found unresponsive in his car at [facility]. In our ED, patient received 4 mg of narcan. Patient was protecting his airway. CT head is negative. CXR unremarkable. UDS was positive for THC, benzos, amphetamines. Patient was admitted to our intensive care unit for close monitoring. he remained hemodynamically stable and asymptomatic. He was eating and ambulating well at discharge. He was found to have a penile lesion. He was instructed to see his primary care doctor for further management. hepatitis and rpr were negative. f/u with primary care physician for penile lesion. - Time Spent with Patient Total time spent providing and/or coordinating discharge services: - Constitutional Vitals: Temp Pulse Resp BP Pulse Ox 97.8 F 75 16 109/69 97 08/16/16 07:02 08/16/16 07:02 08/16/16 07:02 08/16/16 07:02 08/16/16 07:02 General appearance: Present: cooperative, A&O X 3, pleasant, no acute distress, answers questions appropriately - Neck Neck exam general surgery: Absent: supple, trachea midline - Respiratory Respiratory exam: Present: CTAB - Cardiovascular Cardiovascular exam: Present: RRR - GI/Abdominal GI/Abdominal exam: Present: normal bowel sounds, soft. Absent: distended, tenderness - Extremities Exam Extremities exam: Absent: pedal edema - Back Exam Back exam: Absent: CVA tenderness (L), CVA tenderness (R) - Neurological Exam Neurological exam: Present: alert, oriented X3, no focal deficits, strengths equal and symetr throughout. Absent: pronater drift, facial droop, speech deficit - Skin Skin exam: Absent: rash
[2016-08-16] MEDS ORDERED: Pantoprazole 40 MG VIAL IVP SCH (09:00)
[2016-08-16 10:48] LABS: Hepatitis A Antibody IgM Nonreactive (Nonreactive); Hepatitis B Surface Antigen Nonreactive (Nonreactive); Hepatitis C Virus Antibody Nonreactive (Nonreactive)
[2016-08-16 13:49] LABS: Hepatitis B Core IgM Nonreactive (Nonreactive)
== END 2016-08-16 09:28 | disposition home or self-care (01) ==
LOC: EMEROO 23:49 → ICNU 23:49 → EDBD 08-15 02:12 → SUATTDRO 08-15 04:05 → ICNU 08-15 04:59 → 3BNU 08-15 16:03
PROVIDERS: ADMIT Internal Medicine; ATTEND Internal Medicine